=== PATIENT | female | born 1950 | race Caucasian/White ===

== ENCOUNTER 2017-07-14 05:11 | Emergency (ER) | payer MEDICARE ==
[2017-07-14 06:05] LABS: #Basophils 0.1 thou/uL (0.0-0.2); #Eosinphils 0.1 thou/uL (0.0-0.7); #Lymphocytes 1.2 thou/uL (1.20-3.40); #Monocytes 0.5 thou/uL (0.11-0.59); #Neutrophils 6.8 thou/uL (1.40-6.50); %Basophils 0.7 % (0.0-1.0); %Eosinophils 1.2 % (0.0-10.0); %Lymphocytes 13.9 % (21.0-51.0); %Monocytes 5.4 % (0.0-10.0); %Neutrophils 78.8 % (42.0-75.0); Hemoglobin 14.5 g/dL (12.0-16.0); Mean Corpuscular HGB CONC 34.1 g/dL (32.0-36.0); Mean Corpuscular Hemoglobin 31.1 pg (27.0-31.0); Mean Corpuscular Volume 91.2 fl (81.0-99.0); Mean Platelet Volume 7.9 fL (7.4-10.4); Platelet Count 281 thou/uL (130-400); RBC Distribution Width 11.7 % (11.5-14.5); Red Blood Cell (RBC) Count 4.65 mill/uL (4.20-5.40); White Blood Cell (WBC) Count 8.6 thou/uL (4.8-10.8)
[2017-07-14] MEDS ORDERED: Ondansetron HCl/PF 4 MG/2 ML Vial ONE (06:06)
[2017-07-14 06:26] LABS: ALT (SGPT) 19 U/L (8-55); AST (SGOT) 26 U/L (5-34); Alkaline Phosphatase 103 U/L (40-150); Anion Gap 13 mmol/L (10-20); BUN (Urea Nitrogen) 26 mg/dL (9.8-20.1); Bilirubin, Total 0.7 mg/dL (0.2-1.2); Calc. Creatinine Clearance 0 mL/min (70-130); Calcium 9.9 mg/dL (7.8-10.44); Carbon Dioxide 29 mmol/L (23-31); Chloride 103 mmol/L (98-107); Estimated GFR-MDRD 54; Globulin 3.4 g/dL (2.4-3.5); Glucose 149 mg/dL (80-115); Potassium 3.3 mmol/L (3.5-5.1); Protein, Total 7.4 g/dL (6.0-8.3); Sodium 142 mmol/L (136-145)
--- NOTE | 2017-07-14 07:54 | ULT ---
RIGHT UPPER QUADRANT ULTRASOUND: HISTORY: A 67-year-old female with right upper quadrant pain. FINDINGS: The gallbladder is demonstrated with multiple large mobile gallstones within the gallbladder without evidence for gallbladder wall thickening or pericholecystic fluid. The common bile duct is 0.5 cm. V isualized pancreas and right kidney are unremarkable. Mild liver enlargement. IMPRESSION: Gallstones and mild liver enlargement POS: [facility]
--- NOTE | 2017-07-22 17:19 | EKG ---
Test Reason : Blood Pressure : / mmHG Vent. Rate : 059 BPM Atrial Rate : 059 BPM P-R Int : 156 ms QRS Dur : 088 ms QT Int : 442 ms P-R-T Axes : 023 018 019 degrees QTc Int : 437 ms Sinus bradycardia Otherwise normal ECG Confirmed by MITA THOMAS, POLINA Monge ([id number]), tape editor MICHELLE MCFARLAND ([id number]) on 07/22/2017 5:19:10 PM Referred By: Confirmed By:POLINA FAN MD
== END 2017-07-14 07:15 | disposition home or self-care (01) ==
LOC: ERS 05:11
DX: K80.20 Calculus of gallbladder without cholecystitis without obstruction (principal); I10 Essential (primary) hypertension; Z79.82 Long term (current) use of aspirin; Z79.899 Other long term (current) drug therapy
CPT/HCPCS: 76705; 80053; 83690; 85025; 93005; 96361; 96374; J2405

== ENCOUNTER 2017-07-19 09:43 | Day surgery (SDC) | payer MEDICARE ==
--- NOTE | 2017-07-18 11:50 | HP ---
HISTORY OF PRESENT ILLNESS: A 67-year-old female patient, who has had gallbladder problems for many years; in fact [place] she [place] [facility] [place] presented with right upper quadrant pain and was found to have gallbladder sludge and at that time, they did not recommend she have her gallbladder out. Instead, she underwent ERCP, suffered post-procedural pancreatitis, requir ing hospitalization for several days. She has had intermittent pains in right upper quadrant, epigas trium, back radiation, nausea for many years. She had a particularly severe episode that would not r esolve and presented to the emergency room at [facility] on 07/14/2017. Liver function test s, comprehensive metabolic profile, CBC, and lipase were normal. EKG was normal. Ultrasound reveale d gallstones with a 5 mm bile duct. Her pain improved. After observation, she was sent home, visite d my office today, and plan is for laparoscopic cholecystectomy tomorrow. Risks of infection, bleedi ng, visceral, and biliary injury explained. Questions answered and she consents. She has adequate t ramadol at home and does not need any more pain medications postoperatively. ALLERGIES: AMPICILLIN, PENICILLIN. CODEINE causes dizziness, not a true allergy. TOBACCO: None. ALCOHOL: Rarely. MEDICATIONS: Aspirin 81 mg a day, chlorthalidone 25 mg a day, multivitamins daily. PAST SURGICAL HISTORY: Wrist surgery, bilateral tubal ligation, transvaginal hysterectomy. PAST MEDICAL HISTORY: Hypertension. REVIEW OF SYSTEMS: Ten point noncontributory. She had a colonoscopy two years ago that was normal. Cardiac review of systems: Negative. PHYSICAL EXAMINATION: VITAL SIGNS: 145/68, 61, 97.3 degrees, 235 pounds, 66, BMI 38. HEAD, EARS, EYES, NOSE, AND THROAT: Unremarkable. Sclerae nonicteric. SKIN: Nonjaundiced. NECK: Axillae or groins without lymphadenopathy and legs without venous stasis changes, no ankle porsha ma. LUNGS: Clear to auscultation. CARDIAC: Regular rate and rhythm without murmur or gallop. ABDOMEN: Soft, nontender. No evident hernias, neurologically intact. ASSESSMENT AND PLAN: Symptomatic cholelithiasis. Recommend laparoscopic video cholecystectomy. Ris k of infection, bleeding, visceral and biliary injury explained. She consents.
[2017-07-18 12:08] VITALS: BMI 37.9
[2017-07-19] MEDS ORDERED: Ketorolac Tromethamine 30 MG/ML VIAL ONE (10:29)
[2017-07-19] MEDS ORDERED: Levofloxacin 500 mg/D5W 100 ml Premix Bag ONE (10:29)
[2017-07-19] MEDS ORDERED: Lidocaine 2% w/Epinephrine 1:200K 20 ML VIAL ONE (11:26)
[2017-07-19] MEDS ORDERED: Bupivacaine 0.25% HCL 30 ML VIAL ONE (11:26)
[2017-07-19] MEDS ORDERED: Fentanyl 100 MCG/2 ML VIAL ONE ×2 (11:31→12:51)
[2017-07-19] MEDS ORDERED: SUGAMMADEX SODIUM 200 MG/2 ML VIAL ONE (12:34)
--- NOTE | 2017-07-19 14:02 | OP ---
DATE OF PROCEDURE: 07/19/2017 PREOPERATIVE DIAGNOSES: Chronic cholecystitis, cholelithiasis. POSTOPERATIVE DIAGNOSES: Chronic cholecystitis, cholelithiasis. PROCEDURE: Laparoscopic video cholecystectomy. SURGEON: Dr. Sergio Saunders ANESTHESIA: General. Local 0.25% Marcaine with epinephrine, 30 mL, mixed with 1% Xylocaine with epi nephrine, 40 mL mixture used. DESCRIPTION OF PROCEDURE: The patient taken to the operating room where under general anesthesia, ab clements was prepared with ChloraPrep and draped in routine fashion. Local anesthetic mixture infiltrat ed into skin and subcutaneous tissue about each port site. Infraumbilical incision made and pneumope ritoneum to 15 mmHg obtained with the Veress needle, replacing it with a 5 port and laparoscope inser blossom. Right subxiphoid incision made and 11 port placed. Right subcostal incision made mid clavicula r and anterior axillary lines and 5 ports placed. Liver appeared to be normal. Gallbladder had mult iple stones. Fundus grasped and reflected cephalad. Infundibulum grasped and reflected laterally. Cystic artery and duct dissected free. Critical view obtained with pericholecystic dissection 2/3rd of cystic plate. Cystic artery doubly clipped proximally, divided, and gallbladder dissected free fr om the liver bed obtaining good hemostasis prior to division of final peritoneal attachments. Gallbl adder and contents removed and submitted to Pathology. Good hemostasis ensured with the cautery. Ir rigant and pneumoperitoneum evacuated and all instruments removed and all skin incisions approximated with interrupted subdermal 4-0 Monocryl and DermaGlue applied.
[2017-07-19] MEDS ORDERED: Ondansetron HCl/PF 4 MG/2 ML Vial ONE (14:55)
[2017-07-19] MEDS ORDERED: Lidocaine 1% PF 5 ML VIAL ONE (14:55)
[2017-07-19] MEDS ORDERED: Dexamethasone 20 MG/5 ML VIAL ONE (14:55)
[2017-07-19] MEDS ORDERED: Propofol 200 MG/20 ML VIAL ONE (14:55)
[2017-07-19] MEDS ORDERED: Glycopyrrolate 0.2 MG/ML 5 ML SYRINGE ONE (14:55)
== END 2017-07-19 15:00 | disposition home or self-care (01) ==
LOC: SDC 09:43
PROVIDERS: ATTEND Specialist
PROC: 0FT44ZZ Resection of Gallbladder, Percutaneous Endoscopic Approach (ICD-10-PCS; principal; 2017-07-19)
DX: K80.12 Calculus of gallbladder with acute and chronic cholecystitis without obstruction (principal); I10 Essential (primary) hypertension; E78.5 Hyperlipidemia, unspecified; Z98.51 Tubal ligation status; Z98.890 Other specified postprocedural states; Z90.711 Acquired absence of uterus with remaining cervical stump; Z88.0 Allergy status to penicillin; Z88.1 Allergy status to other antibiotic agents; Z88.5 Allergy status to narcotic agent; Z79.82 Long term (current) use of aspirin; Z79.899 Other long term (current) drug therapy
CPT/HCPCS: 88304; 96374; J0131; J1100; J1885; J1956; J2001; J2405; J2704; J3010; S0020

== ENCOUNTER 2017-09-08 12:33 | Outpatient (CLI) | payer MEDICARE | END 2017-09-08 12:34 | disposition home or self-care (01) | LOC: BICMAMMO 12:33 | PROVIDERS: ATTEND Family Medicine | DX: Z12.31 Encounter for screening mammogram for malignant neoplasm of breast (principal) | CPT/HCPCS: 77063; 77067 ==

== ENCOUNTER 2018-09-13 09:05 | Outpatient (CLI) | payer MEDICARE ==
--- NOTE | 2018-09-14 11:56 | MMO ---
Bilateral MAMMO Bilat Screen [facility]. CLINICAL HISTORY: Patient is 68 years old and is seen for screening. The patient has the following family history of breast cancer: cousin female. The patient has no personal history of cancer. VIEWS: The views performed were: bilateral craniocaudal with tomosynthesis and bilateral mediolateral oblique with tomosynthesis. FILMS COMPARED: The present examination has been compared to prior imaging studies performed at [facility] on 09/08/2017, and at [facility] on 08/09/2013, 08/11/2014, 08/20/2015 and 08/25/2016. MAMMOGRAM FINDINGS: There are scattered fibroglandular densities. There are stable benign appearing calcifications seen in both breasts. There are no suspicious masses, suspicious calcifications, or new areas of architectural distortion. IMPRESSION: THERE IS NO MAMMOGRAPHIC EVIDENCE OF MALIGNANCY. A ROUTINE FOLLOW-UP MAMMOGRAM IN 1 YEAR IS RECOMMENDED. THE RESULTS OF THIS EXAM WERE SENT TO THE PATIENT. ACR BI-RADS Category 2 - Benign finding MAMMOGRAPHY NOTE: 1. A negative mammogram report should not delay a biopsy if a dominant of clinically suspicious mass is present. 2. Approximately 10% to 15% of breast cancers are not detected by mammography. 3. Adenosis and dense breasts may obscure an underlying neoplasm.
== END 2018-09-13 09:06 | disposition home or self-care (01) ==
LOC: BICMAMMO 09:05
PROVIDERS: ATTEND Family Medicine
DX: Z12.31 Encounter for screening mammogram for malignant neoplasm of breast (principal); Z80.3 Family history of malignant neoplasm of breast
CPT/HCPCS: 77063; 77067

== ENCOUNTER 2019-10-11 15:44 | Outpatient (CLI) | payer MEDICARE ==
--- NOTE | 2019-10-14 08:21 | MMO ---
Bilateral MAMMO Bilat Screen [facility]. CLINICAL HISTORY: Patient is 69 years old and is seen for screening. The patient has the following family history of breast cancer: cousin female. The patient has no personal history of cancer. VIEWS: The views performed were: bilateral craniocaudal with tomosynthesis and bilateral mediolateral oblique with tomosynthesis. FILMS COMPARED: The present examination has been compared to prior imaging studies performed at [facility] on 09/08/2017 and 09/13/2018, and at [facility] on 08/25/2016. This study has been interpreted with the assistance of computer-aided detection. MAMMOGRAM FINDINGS: There are scattered fibroglandular densities. Benign calcifications are noted bilaterally. There are no suspicious masses, suspicious calcifications, or new areas of architectural distortion. IMPRESSION: THERE IS NO MAMMOGRAPHIC EVIDENCE OF MALIGNANCY. A ROUTINE FOLLOW-UP MAMMOGRAM IN 1 YEAR IS RECOMMENDED. THE RESULTS OF THIS EXAM WERE SENT TO THE PATIENT. ACR BI-RADS Category 2 - Benign finding MAMMOGRAPHY NOTE: 1. A negative mammogram report should not delay a biopsy if a dominant of clinically suspicious mass is present. 2. Approximately 10% to 15% of breast cancers are not detected by mammography. 3. Adenosis and dense breasts may obscure an underlying neoplasm. Reported by: PAULINO WILLIS MD Electonically Signed: [id number]
== END 2019-10-11 15:45 | disposition home or self-care (01) ==
LOC: BICMAMMO 15:44
PROVIDERS: ATTEND Family Medicine
DX: Z12.31 Encounter for screening mammogram for malignant neoplasm of breast (principal); Z80.3 Family history of malignant neoplasm of breast
CPT/HCPCS: 77063; 77067

== ENCOUNTER 2020-10-13 09:49 | Outpatient (CLI) | payer MEDICARE | END 2020-10-13 09:50 | disposition home or self-care (01) | LOC: BICMAMMO 09:49 | PROVIDERS: ATTEND Family Medicine | DX: Z12.31 Encounter for screening mammogram for malignant neoplasm of breast (principal); Z80.3 Family history of malignant neoplasm of breast | CPT/HCPCS: 77063; 77067 ==

== ENCOUNTER 2021-10-14 11:06 | Outpatient (CLI) | payer MEDICARE | END 2021-10-14 11:07 | disposition home or self-care (01) | LOC: BICMAMMO 11:06 | PROVIDERS: ATTEND Family Medicine | DX: Z12.31 Encounter for screening mammogram for malignant neoplasm of breast (principal); Z80.3 Family history of malignant neoplasm of breast | CPT/HCPCS: 77063; 77067 ==

== ENCOUNTER 2022-10-21 12:15 | Outpatient (CLI) | payer MEDICARE | END 2022-10-21 12:16 | disposition home or self-care (01) | LOC: BICMAMMO 12:15 | PROVIDERS: ATTEND Family Medicine | DX: Z12.31 Encounter for screening mammogram for malignant neoplasm of breast (principal); Z80.3 Family history of malignant neoplasm of breast | CPT/HCPCS: 77063; 77067 ==

== ENCOUNTER 2023-08-01 13:06 | Outpatient (CLI) | payer MEDICARE | END 2023-08-01 13:07 | disposition home or self-care (01) | LOC: BICMAMMO 13:06 | PROVIDERS: ATTEND Family Medicine | DX: Z13.820 Encounter for screening for osteoporosis (principal); Z78.0 Asymptomatic menopausal state | CPT/HCPCS: 77080 ==